=== PATIENT | male | born 1945 | race Caucasian/White ===

== ENCOUNTER → 2017-11-05 | Outpatient (CLI) | payer OTHER ==
[~2017-11-05] MED LIST: AMLO5; Benadryl 50 mg50 MG PO; FLUO25TC TOP; HYDCHL12.5 PO; LISI20; LORA10; METPRE4DP PO; PROSTATE HEALT1 EACH PO; Pepcid40 MG PO; Saw Palmetto160 MG
== END | disposition home or self-care (01) ==
LOC: LAB EV 13:47
DX: H01.009 Unspecified blepharitis unspecified eye, unspecified eyelid (principal)
CPT/HCPCS: 87070; 87205

== ENCOUNTER → 2018-01-25 | Outpatient (CLI) | payer MEDICARE | LOC: PLD 09:05 → LAB SHORT 09:05 | DX: D48.5 Neoplasm of uncertain behavior of skin (principal) | CPT/HCPCS: 88305 ==

== ENCOUNTER 2020-11-06 10:17 | Day surgery (SDC) | payer MEDICARE, OTHER ==
[~2020-11-06] VITALS: Ht 182.9 cm; Wt 99.8 kg
== END 2020-11-06 12:45 | disposition home or self-care (01) ==
LOC: ORSCSDS 10:17
PROVIDERS: Internal Medicine Gastroenterology
PROC: 0DBM8ZX Excision of Descending Colon, Via Natural or Artificial Opening Endoscopic, Diagnostic (ICD-10-PCS; principal; 2020-11-06 11:30)
PROC: 0DBL8ZX Excision of Transverse Colon, Via Natural or Artificial Opening Endoscopic, Diagnostic (ICD-10-PCS; principal; 2020-11-06 11:30)
DX: Z12.11 Encounter for screening for malignant neoplasm of colon (principal); Z86.010 Personal history of colon polyps; K63.5 Polyp of colon; K57.30 Diverticulosis of large intestine without perforation or abscess without bleeding; K64.8 Other hemorrhoids; K63.89 Other specified diseases of intestine; I10 Essential (primary) hypertension
CPT/HCPCS: 88305; J2704; J7120